=== PATIENT | male | born 1950 | race Caucasian/White ===

== ENCOUNTER → 2018-05-17 10:06 | Outpatient (CLI) | payer MEDICARE, SELFPAY ==
--- NOTE | 2018-05-17 | DI.MRI.S_ITS ---
PROCEDURE: MR CERVICAL SPINE WO CON INDICATIONS: CHRONIC PAIN OF BOTH SHOULERS TECHNIQUE: Noncontrast sagittal T1 spin echo and T2 fast spin echo, sagittal STIR, foraminal oblique sagittal T2 fast spin echo, and axial gradient echo or T2 fast spin echo through the cervical spine. COMPARISON: None. FINDINGS: Image quality: This examination is limited by involuntary motion artifact. Alignment and Curvature: There is normal bony alignment. Bone Marrow: Marrow demonstrates normal overall signal. Spinal Cord: Visualized spinal cord has normal size and signal. No cerebellar tonsillar herniation. Paraspinous Soft Tissues: No paravertebral masses. Prevertebral soft tissues are normal in thickness. C2-C3: No significant abnormality is seen. C3-C4: Mild loss of disc height is seen. Loss of disc signal is seen. Mild to moderate disc osteophyte complex is seen. Mild to moderate facet hypertrophy is seen. There is moderate to severe right-sided and moderate left-sided neural foraminal narrowing seen. Mild central canal narrowing is seen. C4-C5: The disc height is relatively well-preserved. Mild to moderate disc osteophyte complex is seen. Mild facet joint hypertrophy is seen. Moderate bilateral neural foraminal narrowing is seen, left greater than right. No significant central canal narrowing is seen. C5-C6: The disc height is relatively well-preserved. There is at least moderate disc osteophyte complex seen. There is a central disc osteophyte protrusion seen, as on series 4 image 34. Mild facet joint hypertrophy is seen. There is moderate to severe bilateral neural foraminal narrowing seen. Moderate central canal narrowing is seen, with associated mass effect upon the ventral spinal cord. C6-C7: The disc height is well-preserved. Moderate generalized disc osteophyte complex is seen. Mild facet joint hypertrophy is seen. Moderate to severe bilateral neural foraminal narrowing is seen. Moderate to severe central canal narrowing is seen, with associated mass effect upon the ventral spinal cord. C7-T1: No significant abnormality is seen. IMPRESSION: Cervical spine degenerative changes are seen, which are overall most prominent at the C6-C7 level, where there is moderate to severe central canal narrowing and moderate to severe bilateral neural foraminal narrowing. Dictated by: Edvin Mcclendon M.D. on 05/17/2018 at 11:50 Approved by: Edvin Mcclendon M.D. on 05/17/2018 at 11:54
== END ==
PROVIDERS: PCP Internal Medicine; Visit Provider Orthopaedic Surgery
DX: M50.323 Other cervical disc degeneration at C6-C7 level (principal); M48.02 Spinal stenosis, cervical region; M25.511 Pain in right shoulder; M25.512 Pain in left shoulder; G89.29 Other chronic pain
CPT/HCPCS: 72141

== ENCOUNTER → 2020-05-11 06:31 | Outpatient (CLI) | payer MEDICARE, SELFPAY ==
--- NOTE | 2020-05-11 | DI.MRI.S_ITS ---
PROCEDURE: MR KNEE RT WO CON INDICATIONS: pain in right knee TECHNIQUE: Noncontrast sagittal PD fast spin echo and T2 fast spin echo with fat saturation, sagittal 3-D FLASH with fat saturation; coronal T1 spin echo and PD fast spin echo with fat saturation, and axial PD fast spin echo with fat saturation through the knee. COMPARISON: None. FINDINGS: Image quality: Excellent. Menisci: There is complex tear involving posterior horn of medial meniscus extending to both superior and inferior articulating surface . There is no evidence of focal lateral meniscal tear. The meniscal root ligaments appear intact. Cruciate ligaments: The anterior and posterior cruciate ligaments appear intact. Medial structures: Low-grade MCL sprain is seen. The posterior oblique ligament, semimembranosus tendon insertions, oblique popliteal ligament, and meniscocapsular junction appear intact. Visualized portions of the pes anserinus tendons appear normal. No abnormal bursal fluid. Lateral structures: The lateral collateral ligament, long and short heads of the biceps femoris tendon appear intact. The popliteus tendon appears normal; the popliteofibular ligament appears intact. The posterosuperior and anteroinferior popliteomeniscal fascicles appear intact. The arcuate and fabellofibular ligaments appear intact, on either side of the lateral inferior geniculate artery. Iliotibial band appears normal. Anterior structures: The quadriceps and patellar tendons appear intact. Patellar alignment is normal. No femoral trochlear dysplasia or ventral trochlear prominence. No edema in the infrapatellar fat pad. Bones and cartilage: No bone marrow contusions or fractures. There is mild tricompartmental osteoarthritis and chondromalacia. Joint space: There is small amount of joint fluid. 2.5 x 2.5 x 4.4 cm popliteal cyst is seen.. Normal appearing synovial plicae are incidentally noted. IMPRESSION: 1. Complex tear involving posterior horn of medial meniscus extending to both superior and inferior articulating surfaces. No evidence of focal lateral meniscal tear. 2. Low-grade MCL sprain. Cruciate ligaments are intact. 3. Mild tricompartmental osteoarthritis and low-grade chondromalacia. Small amount of joint fluid and popliteal cyst as above. Dictated by: Kristian Souza M.D. on 05/11/2020 at 9:28 Approved by: Kristian Souza M.D. on 05/11/2020 at 9:31
== END ==
PROVIDERS: PCP Internal Medicine; Referring Provider Orthopaedic Surgery; Visit Provider Orthopaedic Surgery
DX: M25.561 Pain in right knee (principal); S83.231A Complex tear of medial meniscus, current injury, right knee, initial encounter; S83.411A Sprain of medial collateral ligament of right knee, initial encounter; M17.11 Unilateral primary osteoarthritis, right knee; M94.261 Chondromalacia, right knee; M71.21 Synovial cyst of popliteal space [Baker], right knee
CPT/HCPCS: 73721

== ENCOUNTER → 2020-05-14 11:04 | Outpatient (CLI) | payer MEDICARE, SELFPAY ==
[2020-05-14 12:00] LABS: Add Manual Diff / Slide Review NO; Basophils Absolute Auto 0 /uL (0-100); Basophils Percent Auto 0.6 % (0-2); Eosinophils Absolute Auto 100 /uL (0-450); Eosinophils Percent Auto 0.8 % (2-4); Hematocrit 39.8 % (41-53); Hemoglobin 13.4 g/dL (13.5-17.5); Lymphocytes Absolute Auto 1400 /uL (1100-4500); Lymphocytes Percent Auto 17.4 % (25-40); Mean Corpuscular HGB Conc 33.6 % (30-36); Mean Corpuscular Hemoglobin 29.2 PG (26-34); Mean Corpuscular Volume 86.7 fL (80-100); Monocytes Absolute Auto 300 /uL (0-900); Neutrophils Absolute Auto 6400 /uL (1500-7000); Neutrophils Percent Auto 77.2 % (50-75); Platelet Count 198 X10^3/uL (150-400); Red Cell Distribution Width 15.8 % (11.6-14.8); White Blood Cell Count 8.3 X10^3/uL (4.5-11.0)
[2020-05-14 12:27] LABS: BUN Creatinine Ratio 14.4 (6-22); Blood Urea Nitrogen 15 mg/dL (9-20); Calcium 9.9 mg/dL (8.4-10.2); Carbon Dioxide 28 mmol/L (22-32); Chloride 102 mmol/L (98-107); Estimated Glomerular Filt Rate > 60.0 mL/min (>60); Glucose 136 mg/dL (80-110); HEMOLYSIS < 15 (0-50); Potassium 4.8 mmol/L (3.4-5.1); Sodium 137 mmol/L (137-145)
== END ==
PROVIDERS: PCP Family Medicine; Referring Provider Orthopaedic Surgery; Visit Provider Orthopaedic Surgery
DX: Z01.818 Encounter for other preprocedural examination (principal); Z01.812 Encounter for preprocedural laboratory examination
CPT/HCPCS: 36415; 80048; 85025; 93005

== ENCOUNTER → 2020-09-30 06:58 | Outpatient (CLI) | payer MEDICARE, SELFPAY ==
--- NOTE | 2020-09-30 | DI.MRI.S_ITS ---
PROCEDURE: MR LUMBAR SPINE WO CON INDICATIONS: Low back pain TECHNIQUE: Noncontrast sagittal T1 spin echo and T2 fast echo, sagittal STIR, axial T1 and T2 fast spin echo through the lumbar spine. In cases with scoliosis, additional coronal T2 fast spin echo may be performed. COMPARISON: None. FINDINGS: Image quality: Excellent. Alignment and Curvature: There is normal bony alignment. Bone Marrow: No acute fracture. Transitional lumbosacral vertebra designated L1. Please see the montage image for further clarification of the spinal segmental level nomenclature used in this report prior to any intervention. Chronic appearing fracture of the L1 vertebral body with no marrow edema. Spinal Cord: Conus medullaris terminates at the L1-L2 level. Visualized cord demonstrates normal signal and size. Paraspinous Soft Tissues: No paravertebral masses. L1-L2: Normal appearance. L2-L3: Normal appearance. L3-L4: Dorsal epidural lipomatosis. Moderate canal narrowing. Partial effacement of both lateral recesses with bilaterally symmetric appearance. Moderate right foraminal stenosis with slight nerve root compression. Severe left foraminal stenosis with nerve root compression. L4-L5: Moderate canal stenosis. Near complete effacement of both lateral recesses with mildly asymmetric appearance, right slightly greater than left. Severe bilateral foraminal stenosis with nerve root compression. L5-S1: Mild canal narrowing. Lateral recesses appear grossly patent. Moderate right foraminal stenosis, with borderline nerve root compression. Moderate to severe left foraminal stenosis with slight nerve root compression. IMPRESSION: Multilevel spondylosis and facet arthropathy as above, moderate canal narrowing at L3-L4, L4-L5. Diffuse bilateral foraminal stenoses as detailed above by spinal level Chronic appearing L1 mild compression fracture. Dictated by: Floyd Noland M.D. on 09/30/2020 at 9:14 Approved by: Floyd Noland M.D. on 09/30/2020 at 9:21
== END ==
PROVIDERS: PCP Family Medicine; Referring Provider Family Medicine; Visit Provider Orthopaedic Surgery
DX: M54.5 Low back pain (principal); M47.816 Spondylosis without myelopathy or radiculopathy, lumbar region; M48.061 Spinal stenosis, lumbar region without neurogenic claudication; M48.56XA Collapsed vertebra, not elsewhere classified, lumbar region, initial encounter for fracture
CPT/HCPCS: 72148

== ENCOUNTER 2023-06-18 06:40 | Day surgery (SDC) | payer MEDICARE, SELFPAY ==
--- NOTE | 2023-06-18 | PATH_ITS ---
[facility] Accession Number: [id number] No. of containers..09 Tissue . 01 Material submitted: . PART A: gastrointestinal site - GASTRIC POLYPS PART B: esophagus - DISTAL ESOPHAGUS PART C: colon - DESCENDING COLON POLYPS PART D: colon - TRANSVERSE POLYPS PART E: cecum - CECUM POLYP PART F: ileo-cecal valve - ILEOCECAL VALVE BIOPSY PART G: colon - ASCENDING POLYPS PART H: sigmoid colon - SIGMOID POLYP PART I: rectum - RECTUM POLYPS . 01 Diagnosis: A. Gastric Polyps: Fundic gland polyps. No evidence of Helicobacter organisms on H/E stain. Negative for intestinal metaplasia. Negative for dysplasia and malignancy. . B. Distal Esophagus, Biopsy: Squamocolumnar junctional mucosa with no diagnostic abnormality. Negative for intestinal metaplasia. Negative for dysplasia and malignancy. . C. Descending Colon Polyps: Tubular adenomas. . D. Transverse Colon Polyps: Tubular adenoma. . E. Cecal Polyp: Tubular adenoma. . F. Ileocecal Valve, Biopsy: Mild active enteritis; please see comment. Negative for granulomas, dysplasia or malignancy. . G. Ascending Colon Polyps: Tubular adenomas. . H. Sigmoid Colon Polyp: Tubular adenoma. . I. Rectal Polyps: Hyperplastic polyps. [facility] 06/22/2023 1113 Local . 01 Comment: D. Only one biopsy fragment is received for histologic evaluation. . F. The findings in the ileocecal valve biopsy are most suggestive of an acute self-limited colitis (infectious vs. drug/toxin induced). . 01 Electronically signed: . Ruiz Matt MD, PhD, Pathologist NPI- [id number] . 01 Gross description: . Part A: GASTRIC POLYPS: Received in formalin is multiple fragment(s) of payan, soft tissue measuring 0.7 x 0.3 x 0.1 cm in aggregate submitted entirely in 1 cassette(s) Part B: DISTAL ESOPHAGUS: Received in formalin is 1 fragment(s) of payan, soft tissue measuring 0.3 x 0.3 x 0.1 cm submitted entirely in 1 cassette(s) Part C: DESCENDING COLON POLYPS: Received in formalin is 4 fragment(s) of payan, soft tissue measuring 0.5 x 0.5 x 0.4 cm to 0.4 x 0.3 x 0.2 cm submitted entirely in 1 cassette(s) 1. Part D: TRANSVERSE POLYPS: Received in formalin is 1 fragment(s) of payan, soft tissue measuring 1.3 x 0.5 x 0.3 cm submitted entirely in 1 cassette(s) Part E: CECUM POLYP: Received in formalin is multiple fragment(s) of payan, soft tissue measuring 1.5 x 0.5 x 0.3 cm in aggregate submitted entirely in 1 cassette(s) Part F: ILEOCECAL VALVE BIOPSY: Received in formalin is 1 fragment(s) of payan, soft tissue measuring 0.3 x 0.2 x 0.1 cm submitted entirely in 1 cassette(s) Part G: ASCENDING POLYPS: Received in formalin is multiple fragment(s) of payan, soft tissue measuring 1.0 x 0.6 x 0.3 cm in aggregate submitted entirely in 1 cassette(s) Part H: SIGMOID POLYP: Received in formalin is 1 fragment(s) of payan, soft tissue measuring 0.4 x 0.3 x 0.2 cm submitted entirely in 1 cassette(s) Part I: RECTUM POLYPS: Received in formalin is 3 fragment(s) of payan, soft tissue measuring 0.3 x 0.2 x 0.1 cm to 0.2 x 0.1 x 0.1 cm submitted entirely in 1 cassette(s) /AARadha 06/20/2023 0115 Local . 01 Pathologist provided ICD-10: K31.7, K21.9, D12.6, K62.1, K52.9 . 01 CPT . 570280, 643361, 305237, 327858, 959235, [id number], 576802, 136889, [id number] Specimen Comment: A courtesy copy of this report has been sent to [phone] Performed at: 01 [facility] [address] [place] [address], [place] [id number] MD Devon Donnelly MD Phone: [phone]
[2023-06-18] MEDS: LACTATED RINGERS 1,000 ML 100 ML IV (07:29)
[2023-06-18 07:43] VITALS: BP 153/78; PULSE 75; RESP 16; TEMP 36.3; O2SAT 100; BMI 27.1
--- NOTE | 2023-06-18 07:56 | PM.HP.1 ---
History of Present Illness History of Present Illness Date Patient Seen: 06/18/23 Time Patient Seen: 07:56 Chief complaint: EGD & Colonoscopy w/poss bx's Narrative: The patient was seen recently in clinic by Shailesh Cowan. As a result of some computer issues, I have not been able to see the note. The patient indicates that he has a chronic history of gastroesophageal reflux that is reasonably well controlled if he takes his omeprazole. He is interested in Barretts screening. He is a personal history of unknown histology colon polyps and it has been quite some time 12+ years since his last colonoscopy per recollection. He had an episode of red blood per rectum. Therefore both upper and lower endoscopy are pursued today. [facility] Social History household members: other Smoking Status: Never smoker alcohol intake: current Meds Home Medications and Allergies Home Medications Medication Instructions Recorded Confirmed Type metformin 500 mg tablet 500 mg PO QID 06/18/23 06/18/23 History omeprazole 20 mg capsule,delayed 20 mg PO DAILY 06/18/23 06/18/23 History release prednisone 10 mg tablet 10 mg PO DAILY 06/18/23 06/18/23 History rosuvastatin 10 mg tablet 10 mg PO DAILY 06/18/23 06/18/23 History Allergies Allergy/AdvReac Type Severity Reaction Status Date / Time levofloxacin [From Levaquin] AdvReac Verified 06/18/23 07:31 Review of Systems Review of Systems ROS: Yes All systems reviewed with the patient and are negative except as otherwise documented Exam Vital Signs (past 8 hours): - 06/18/23 07:43 Temperature 97.3 F L Pulse Rate 75 Respiratory Rate 16 Blood Pressure 153/78 H Pulse Oximetry 100 Oxygen Delivery Method Room Air Oxygen Delivery Method Room Air Const General: cooperative HENMT Head: normal to inspection Eyes General: appearance normal, both eyes and all related structures Neck Neck: normal visual inspection Chest Chest: normal inspection of the chest Resp Effort & Inspection: normal respiratory effort Cardio Rate: regular rate GI Inspection: normal to inspection Skin General: no rashes or lesions noted Neuro General: patient alert and patient awake Extrem General: normal to inspection and no pedal edema Psych Appearance: grossly normal Assessment & Plan Assessment & Plan narrative: 72-year-old male with chronic GERD and a personal history of colon polyps. There was an episode of red blood per rectum. Both EGD for Barretts screening and colonoscopy are pursued today.
--- NOTE | 2023-06-18 07:58 | PM.PREOP ---
Pre-operative Note Interval Note History & Physical reviewed/Exam performed by Physician: Yes Changes to H&P: No ASA Class (for procedural sedation): II
--- NOTE | 2023-06-18 08:55 | P.OP.EGD&C_ITS ---
Operative Date/Time/Diagnoses Date of procedure: 06/18/23 Time of procedure: 08:55 Pre-op diagnosis: Chronic GERD, personal history of colon polyps, red blood per rectum Post-op diagnosis: same Procedure & Clinicians Study performed: EGD with biopsies and colonoscopy with hot snare polypectomy, cold snare polypectomy, biopsies Same procedure as scheduled: Yes Indications: Chronic GERD, personal history of colon polyps, red blood per rectum Surgeon: Garry Parada Procedure Notes SCOAP/Timeout: Done Procedure in detail: After the risks and benefits were explained, written and verbal informed consent was obtained. The patient was brought into the procedure room and placed into the left lateral decubitus position. Please see anesthesia notes for sedation details. The scope was introduced into the mouth through the bite block and advanced under direct visualization to the 2nd portion of the duodenum. The scope was slowly withdrawn carefully examining the mucosa for any defects or lesions. Retroflexed views were accomplished in the stomach. The stomach was decompressed, the scope was then removed from the patient who tolerated the procedure well. The patient was then turned around. A digital rectal examination was accomplished. The scope was introduced into the rectum and advanced to the cecum as identified by the appendiceal orifice and ileocecal valve. The scope was slowly withdrawn to carefully examine the mucosa for any defects or lesions. Multiple direct views were made through the dentate line for exclusion of pathology. The colon was decompressed. The scope was removed from the patient who tolerated the procedure well. Adult colonoscope Bowel prep fair at best Because of the number of polyps required to be removed today and the length of time with which the colonoscopy took, a 22 modifier is requested. Scope withdrawal time: 27 minutes Sedation minutes: 50 Complications: none Impression: 1. Duodenum: No pathology appreciated throughout. 2. Stomach: Patient had numerous moderate-sized polyps all throughout the gastric body and fundus. Several of these were sampled with cold forceps for histopathology. Otherwise retroflexed views of the LES were unremarkable. 3. Esophagus: The squamocolumnar junction correlated for the most part with the top of the gastric folds. GEJ was at about 36 cm from the incisors. However in the 7:00 a.m. location there was a tongue of possible Barretts characterized by extension of the salmon-colored mucosa up into the tubular esophagus. This area was targeted for biopsy. If this was Barretts it would be considered C 0 M 0.5 by the [place] criteria. The remainder of the esophagus was unremarkable. There were no features of esophagitis nodularity stricturing. 4. Colon: Prep conditions were fair at best as described above. Numerous polyps were seen and removed today. There was 1 approximately 7-8 mm sessile polyp in the cecum removed by way of hot snare. There were 2 polyps in the ascending colon between 7 and 10 mm removed with hot snare. There were 2 7-10 mm polyps in the transverse colon removed with hot snare. There were 3 polyps in the descending colon removed with hot snare. These measured anywhere from 6- 8 mm. There was a 7 mm polyp in the sigmoid colon removed with hot snare. In the rectum there was a diminutive polyp removed with cold snare and a 5 mm polyp removed with hot snare. The ileocecal valve appeared probably lipomatous. I biopsied this to exclude any adenomatous features. The patient had grade 1-2 internal hemorrhoids. Endoscopic diagnosis 1. Possible short-segment Barretts 2. Numerous gastric polyps 3. Numerous colon polyps 4. Grade 1-2 internal hemorrhoids. Post-procedure Plan for aftercare: 1. Await histopathology 2. Continue anti-reflux therapy. 3. Repeat EGD 1 year for polyp surveillance 4. Repeat colonoscopy 6 months considering prep and the number of polyps removed today. Disposition: PACU
[2023-06-18 08:59] VITALS: BP 130/74; PULSE 67; RESP 14; TEMP 37.1; O2SAT 98
[2023-06-18 09:04] VITALS: BP 148/80; PULSE 73; RESP 14; O2SAT 98
[2023-06-18 09:09] VITALS: BP 123/81; PULSE 76; RESP 14; O2SAT 98
[2023-06-18 09:17] VITALS: BP 138/80; PULSE 63; RESP 12; TEMP 36.4; O2SAT 96
== END 2023-06-18 09:33 | disposition home or self-care (01) ==
PROVIDERS: PCP Internal Medicine; Referring Provider Internal Medicine Gastroenterology; Visit Provider Internal Medicine Gastroenterology
PROC: 0DJ08ZZ Inspection of Upper Intestinal Tract, Via Natural or Artificial Opening Endoscopic (ICD-10-PCS; CPT 43235; principal; 2023-06-18 08:00)
PROC: 0DJD8ZZ Inspection of Lower Intestinal Tract, Via Natural or Artificial Opening Endoscopic (ICD-10-PCS; CPT 45378; 2023-06-18 08:00)
DX: K62.5 Hemorrhage of anus and rectum (principal); Z86.010 Personal history of colon polyps; K21.9 Gastro-esophageal reflux disease without esophagitis; K64.1 Second degree hemorrhoids; K31.7 Polyp of stomach and duodenum; D12.4 Benign neoplasm of descending colon; D12.3 Benign neoplasm of transverse colon; D12.0 Benign neoplasm of cecum; D12.2 Benign neoplasm of ascending colon; D12.5 Benign neoplasm of sigmoid colon; K62.1 Rectal polyp; K52.9 Noninfective gastroenteritis and colitis, unspecified
CPT/HCPCS: 45385; 43239; 45380; J2704

== ENCOUNTER → 2023-09-26 11:19 | Outpatient (CLI) | payer MEDICARE, SELFPAY ==
--- NOTE | 2023-09-26 | DI.US.S_ITS ---
PROCEDURE: US PELVIC LIMITED INDICATIONS: ANURIA/OLIGURIA. BPH. EVALUATE POSTVOID RESIDUAL. TECHNIQUE: Real-time transabdominal scanning was performed of the urinary bladder, with image documentation. COMPARISON: None. FINDINGS: Bladder: Prevoid bladder volume of 161 cc. Postvoid residual 27 cc. The prevoid bladder appears within normal limits without stones or masses. Bilateral ureteral jets are seen. IMPRESSION: Urinary bladder appears within normal limits with postvoid residual of 27 cc. We strive to produce accurate, complete, and clear reports of imaging services. To assist us in improving patient care, this report was composed using standard report templates and voice recognition software. Therefore, it may contain abnormal punctuation, insertions and/or omissions. Occasional wrong-word or sound-alike substitutions may occur. Though we review the report and make efforts to correct it, we do recommend that the report be read carefully in proper context to recognize any text inaccuracies. Dictated by: Morris Benedict M.D. on 09/26/2023 at 13:52 Approved by: Morris Benedict M.D. on 09/26/2023 at 13:55
== END ==
PROVIDERS: PCP Internal Medicine; Referring Provider Internal Medicine; Visit Provider Internal Medicine
DX: N40.1 Benign prostatic hyperplasia with lower urinary tract symptoms (principal); R39.15 Urgency of urination
CPT/HCPCS: 76857

== ENCOUNTER → 2024-02-14 07:35 | Outpatient (CLI) | payer MEDICARE, SELFPAY ==
--- NOTE | 2024-02-15 09:38 | DI.NM.S_ITS ---
DATE OF SERVICE: 02/14/2024 NAME OF STUDY: Exercise stress test. INDICATIONS: 1. Exertional chest pain. 2. Cardiac stress. PROCEDURE: The patient underwent exercise stress test under the supervision of attending staff. The patient walked on Vijay protocol for 5 minutes and 30 seconds, achieved maximum heart rate of 142, which was 97% of target heart rate. SAVANNAH positive 11%. 7 METs of workload. Resting blood pressure 148/88 and peak blood pressure 170/90. Baseline rhythm was sinus. At peak exercise, the patient has nonspecific upsloping ST depression in inferolateral leads; however, around 3 minutes in recovery, started having horizontal ST depression in those leads. Maximum 1 to [address] depression in inferior leads and leads V2 through V6 with prolonged recovery up until [address] segments subsided with one 0.5 mg sublingual nitroglycerin. During exercise, the patient started having chest pain which was burning type in the middle of the chest and peaked around on a scale of 1 to 10, 7 in nature at peak exercise. Chest pain responded to sublingual nitroglycerin in recovery. Intermittent PVCs, however, in recovery; patient has 5-beat run of polymorphic nonsustained ventricular tachycardia as well. CONCLUSION: Highly abnormal exercise stress test with inducible ischemia with poor exercise tolerance with SAVANNAH positive 11%. Anginal type of chest discomfort during exercise. Frequent premature ventricular contractions including 5-beat run of polymorphic nonsustained ventricular tachycardia in recovery. Responded to one sublingual nitroglycerin with resolution of ST depression and chest pain. The patient was sent to [facility] for further evaluation and transferring to tertiary care center for left heart catheterization. Juan A Hyman - [employer]/ani/ doc#: [id number]/job#: [id number] dd: 02/14/2024 16:53:00 dt: 02/14/2024 20:25:00 DICTATING MD/COPIES TO: Solomon Becker MD; Duane Singer MD COPIES MNE: ADRI;
== END ==
PROVIDERS: PCP Internal Medicine; Referring Provider Internal Medicine; Visit Provider Internal Medicine
DX: R07.9 Chest pain, unspecified (principal); R94.39 Abnormal result of other cardiovascular function study
CPT/HCPCS: 93017

== ENCOUNTER 2024-02-14 08:46 | Emergency (ER) | payer MEDICARE, SELFPAY ==
[2024-02-14] VITALS (22 sets, daily range): BP systolic 102–128; BP diastolic 55–69; PULSE 81–91; RESP 12–23; TEMP 36.7; O2SAT 92–97; BMI 29.9
--- NOTE | 2024-02-14 08:57 | DI.RAD.S_ITS ---
PROCEDURE: XR CHEST 1V INDICATIONS: chest pain TECHNIQUE: One view of the chest was acquired. COMPARISON: None. FINDINGS: Surgical changes and devices: None. Lungs and pleura: Lungs are clear. No pleural effusions or pneumothorax. Mediastinum: Mediastinal contours appear normal. Heart size is mildly prominent. Bones and chest wall: No suspicious bony lesions. Overlying soft tissues appear unremarkable. IMPRESSION: No acute pulmonary process. Dictated by: Gina Marquez M.D. on 02/14/2024 at 10:59 Approved by: Gina Marquez M.D. on 02/14/2024 at 11:00
--- NOTE | 2024-02-14 09:01 | ED_ITS ---
HPI - Chest Pain General Chief Complaint: Chest Pain Stated Complaint: Chest Pain Time Seen by Provider: 02/14/24 08:56 Source: patient, family and other Mode of arrival: Wheelchair Limitations: no limitations History of Present Illness HPI narrative: Patient 73-year-old male history of uncontrolled diabetes presenting today with chest pain from treadmill stress test. He has been having chest discomfort off and on for the past 18 months. However he was seen and evaluated [facility] about 5 weeks ago told that he had stable angina. Today while on the treadmill he started having chest pain after about 3 minutes with a significant EKG changes. It appears that he is ST depression in lead 2 [address] elevation Chest pain and EKG changes stopped with rest. Cardiology was called and he was brought to the ED for further evaluation. He currently has no chest pain. He reports his father while having cardiac surgery brother of an unknown cause. Related Data Home Medications Medication Instructions Recorded Confirmed metformin 500 mg tablet 500 mg PO QID 06/18/23 06/18/23 omeprazole 20 mg capsule,delayed 20 mg PO DAILY 06/18/23 06/18/23 release prednisone 10 mg tablet 10 mg PO DAILY 06/18/23 06/18/23 rosuvastatin 10 mg tablet 10 mg PO DAILY 06/18/23 06/18/23 Allergies Allergy/AdvReac Type Severity Reaction Status Date / Time levofloxacin [From Levaquin] AdvReac Verified 06/18/23 07:31 Patient History Social History household members: other Smoking Status: Never smoker alcohol intake: current Smoking Status: Never smoker alcohol intake frequency: holidays/special occasions only Substance Use Type: marijuana Exam Initial Vital Signs Initial Vital Signs: Vital Signs Temperature 98.1 F 02/14/24 08:54 Pulse Rate 91 H 02/14/24 08:54 Respiratory Rate 18 02/14/24 08:54 Blood Pressure 128/69 02/14/24 08:54 Pulse Oximetry 97 02/14/24 08:54 Oxygen Delivery Method Room Air 02/14/24 08:54 GENERAL: Alert pleasant 73-year-old male HEENT: Head atraumatic,EOMI, pupils reactive, face symmetric, moist mucous membranes CARDIOVASCULAR: Regular rate and rhythm without murmurs, rubs or gallops. RESPIRATORY: Breath sounds equal bilaterally, no wheezes rales or rhonchi. ABDOMEN: Soft, nontender. Normoactive bowel sounds all 4 quadrants. No guarding or rebound. EXTREMITIES: Normal range of motion, no clubbing or edema. Neurovascularly intact NEUROLOGICAL: Alert and oriented x4.Normal gait and speech. SKIN: Warm, dry, no laceration, no petechiae, no rashes or lesions. Course Orders Ordered: ED Orders 02/14/24 08:57 XR chest 1V Stat Complete Blood Count AUTO DIFF Stat Comprehensive Metabolic Panel Stat Lipase Stat PTT Partial Thromboplastin Juan Stat Prothrombin Time INR Stat Troponin & CK Cardiac Panel Stat EKG-12 Lead Stat 02/14/24 09:15 PTT Partial Thromboplastin Juan Q6H 02/14/24 11:00 Trop I [Troponin I] Stat 02/14/24 11:07 EKG-12 Lead Stat 02/14/24 15:15 PTT Partial Thromboplastin Juan Q6H Discontinued Medications Aspirin (Aspirin 81 Mg Chew Tab) 324 mg PO NOW ONE Stop: 02/14/24 08:58 Last Admin: 02/14/24 09:15 Dose: 324 mg Documented By: GURJIT Heparin Sodium (Porcine) (Heparin 5,000 Unit/Ml Vial) 5,000 unit IV NOW ONE Stop: 02/14/24 09:15 Last Admin: 02/14/24 09:38 Dose: 5,000 unit Documented By: ALBA Sodium Chloride (Normal Saline 0.9%) 1,000 mls @ 150 mls/hr IV CONT MALDONADO Last Admin: 02/14/24 09:15 Dose: 150 mls/hr Documented By: GURJIT Heparin Sodium/Dextrose (Heparin Drip) 25,000 unit in 500 mls @ 23.427 mls/hr IV CONT MALDONADO; Protocol Last Admin: 02/14/24 09:22 Dose: Not Given Documented By: ALBA Heparin Sodium/Dextrose (Heparin Drip) 25,000 unit in 500 mls @ 19.523 mls/hr IV CONT MALDONADO; Protocol Last Titration: 02/14/24 11:59 Dose: 10 units/kg/hr, 19.523 mls/hr Documented By: LOUISA Co-signed By: GURJIT(2) Admin: 02/14/24 09:39 Dose: 10 units/kg/hr, 19.523 mls/hr Documented By: ALBA Co-signed By: GURJIT(2) Vital Signs Vital signs: Vital Signs - 8 hr 02/14/24 08:54 02/14/24 08:58 02/14/24 09:00 Temperature 98.1 F Pulse Rate 91 H 89 Respiratory Rate 18 21 Blood Pressure 128/69 120/66 Pulse Oximetry 97 96 Oxygen Delivery Method Room Air 02/14/24 09:00 02/14/24 09:10 02/14/24 09:10 Temperature Pulse Rate 89 87 Respiratory Rate 22 18 Blood Pressure 110/67 Pulse Oximetry 94 93 Oxygen Delivery Method 02/14/24 09:15 02/14/24 09:15 02/14/24 09:20 Temperature Pulse Rate 86 Respiratory Rate 17 Blood Pressure 114/65 119/66 Pulse Oximetry 93 Oxygen Delivery Method 02/14/24 09:20 02/14/24 09:25 02/14/24 09:25 Temperature Pulse Rate 88 88 Respiratory Rate 18 22 Blood Pressure 111/59 L Pulse Oximetry 94 93 Oxygen Delivery Method 02/14/24 09:30 02/14/24 09:31 02/14/24 09:31 Temperature Pulse Rate 84 83 Respiratory Rate 23 13 Blood Pressure 113/57 L Pulse Oximetry 93 94 Oxygen Delivery Method 02/14/24 09:35 02/14/24 09:35 02/14/24 09:40 Temperature Pulse Rate 83 83 Respiratory Rate 23 18 Blood Pressure 114/57 L Pulse Oximetry 93 94 Oxygen Delivery Method 02/14/24 09:40 02/14/24 09:45 02/14/24 09:45 Temperature Pulse Rate 83 Respiratory Rate 22 Blood Pressure 102/58 L 107/58 L Pulse Oximetry 92 Oxygen Delivery Method 02/14/24 09:50 02/14/24 09:50 02/14/24 09:55 Temperature Pulse Rate 84 Respiratory Rate 20 Blood Pressure 105/59 L 119/61 Pulse Oximetry 93 Oxygen Delivery Method 02/14/24 09:55 02/14/24 10:00 02/14/24 10:00 Temperature Pulse Rate 85 85 Respiratory Rate 16 21 Blood Pressure 125/64 Pulse Oximetry 93 94 Oxygen Delivery Method 02/14/24 10:05 02/14/24 10:05 02/14/24 10:10 Temperature Pulse Rate 84 Respiratory Rate 21 Blood Pressure 116/59 L 110/55 L Pulse Oximetry 93 Oxygen Delivery Method 02/14/24 10:10 02/14/24 10:15 02/14/24 10:15 Temperature Pulse Rate 81 83 Respiratory Rate 16 18 Blood Pressure 106/58 L Pulse Oximetry 93 93 Oxygen Delivery Method 02/14/24 10:20 02/14/24 10:20 02/14/24 10:25 Temperature Pulse Rate 82 Respiratory Rate 14 Blood Pressure 108/59 L 106/60 Pulse Oximetry 92 Oxygen Delivery Method 02/14/24 10:25 02/14/24 10:30 02/14/24 10:30 Temperature Pulse Rate 83 84 Respiratory Rate 18 12 Blood Pressure 111/61 Pulse Oximetry 94 94 Oxygen Delivery Method 02/14/24 10:45 02/14/24 10:45 Temperature Pulse Rate 82 Respiratory Rate 21 Blood Pressure 109/58 L Pulse Oximetry 93 Oxygen Delivery Method MDM - Chest Pain Lab Data 02/14/24 08:57 02/14/24 08:57 Labs: Lab Results 02/14/24 02/14/24 Range/Units 08:57 11:00 WBC 10.4 (4.5-11.0) X10^3/uL RBC 4.47 L (4.5-5.9) X10^6/uL Hgb 13.3 L (13.5-17.5) g/dL Hct 39.7 L (41-53) % MCV 88.9 (80-100) fL MCH 29.7 (26-34) PG MCHC 33.4 (30-36) % RDW 15.6 H (11.6-14.8) % Plt Count 203 (150-400) X10^3/uL Neut % (Auto) 80.2 H (50-75) % Lymph % (Auto) 14.8 L (25-40) % Walker % (Auto) 3.9 (3-14) % Eos % (Auto) 0.6 L (2-4) % Baso % (Auto) 0.5 (0-2) % Neut # (Auto) 8300 H (5315-2323) /uL Lymph # (Auto) 1500 (2945-5724) /uL Walker # (Auto) 400 (0-900) /uL Eos # (Auto) 100 (0-450) /uL Baso # (Auto) 100 (0-100) /uL PT 11.1 (9.4-12.5) SECONDS INR 1.0 (0.9-1.3) APTT 28 (25.1-36.5) SECONDS Sodium 140 (137-145) mmol/L Potassium 4.1 (3.4-5.1) mmol/L Chloride 107 (98-107) mmol/L Carbon Dioxide 21 L (22-32) mmol/L BUN 20 (9-20) mg/dL Creatinine 0.90 (0.66-1.25) mg/dL Estimated GFR > 60 (>60) mL/min BUN/Creatinine Ratio 22.2 H (6-22) Glucose 142 H (80-110) mg/dL Calcium 9.6 (8.4-10.2) mg/dL Total Bilirubin 0.6 (0.2-1.3) mg/dL AST 31 (17-59) IU/L ALT 26 (<50) IU/L Alkaline Phosphatase 61 (38-126) U/L Total Creatine Kinase 144 (55-170) U/L Troponin I 0.023 0.029 (0.01-0.034) ng/mL Total Protein 7.5 (6.3-8.2) g/dL Albumin 4.8 (3.5-5.0) g/dL Globulin 2.7 (1.7-4.1) g/dL Albumin/Globulin Ratio 1.8 (1.0-2.8) Lipase 82 (23-300) U/L Imaging Data Chest x-ray: Radiologist's Impression: PROCEDURE: XR CHEST 1V INDICATIONS: chest pain TECHNIQUE: One view of the chest was acquired. COMPARISON: None. FINDINGS: Surgical changes and devices: None. Lungs and pleura: Lungs are clear. No pleural effusions or pneumothorax. Mediastinum: Mediastinal contours appear normal. Heart size is mildly prominent. Bones and chest wall: No suspicious bony lesions. Overlying soft tissues appear unremarkable. IMPRESSION: No acute pulmonary process. Dictated by: Gina Marquez M.D. on 02/14/2024 at 10:59 ECG Data Attestation: I personally reviewed and interpreted this ECG as follows: Prior ECG tracings: available for review Interpretation: Normal sinus rhythm rate 90 ND interval 190 QRS 86 QTC 428 Q-wave noted in lead 3 AVF non pathologic no ST changes Repeat EKGs sinus rhythm rate 80 ND interval 190 QRS 94 QTC 419 Q-wave persistent in lead 3 and AVF unchanged from prior no acute ST changes MDM Narrative Medical decision making narrative: Patient 73-year-old male history of uncontrolled diabetes presenting today with failed treadmill stress test. He reports having significant chest pain with ST depression in inferior leads after just a few minutes. Cardiology initially was consulted by the treadmill team and sent the ED. Dr. Becker, on-call cardiology contacted by myself is aware of patient reports that patient should be on heparin drip and be transferred for a cardiac catheterization. Suspect for multivessel disease. Blood work reviewed troponin is negative at 0.023, creatinine is 0.90 no other electrolyte abnormalities anemia or leukocytosis Chest x-ray is reviewed without any acute cardiopulmonary process EKG is reviewed: [address] elevation or depressions at rest Patient is given aspirin and placed on heparin drip [facility] are both at capacity 10:50 Dr. Lynch, food runner at [facility] updated on patient's symptoms test results agrees with transfer and recommends admitting to hospitalist 10:55Dr. Abdul, hospitalist [facility] updated patient's symptoms test results accepts patient for transfer Discharge Plan Departure Patient Disposition: Xfer Acute [facility] Clinical Impression: Stable angina Prescriptions: No Action metformin 500 mg tablet 500 mg PO QID prednisone 10 mg tablet 10 mg PO DAILY omeprazole 20 mg capsule,delayed release(DR/EC) 20 mg PO DAILY rosuvastatin 10 mg tablet 10 mg PO DAILY Referrals: Duane Singer MD [Primary Care Provider] -
[2024-02-14 09:06] LABS: Add Manual Diff / Slide Review NO; Basophils Absolute Auto 100 /uL (0-100); Basophils Percent Auto 0.5 % (0-2); Eosinophils Absolute Auto 100 /uL (0-450); Eosinophils Percent Auto 0.6 % (2-4); Hematocrit 39.7 % (41-53); Hemoglobin 13.3 g/dL (13.5-17.5); Lymphocytes Absolute Auto 1500 /uL (1100-4500); Lymphocytes Percent Auto 14.8 % (25-40); Mean Corpuscular HGB Conc 33.4 % (30-36); Mean Corpuscular Hemoglobin 29.7 PG (26-34); Mean Corpuscular Volume 88.9 fL (80-100); Monocytes Absolute Auto 400 /uL (0-900); Monocytes Percent Auto 3.9 % (3-14); Neutrophils Absolute Auto 8300 /uL (1500-7000); Neutrophils Percent Auto 80.2 % (50-75); Platelet Count 203 X10^3/uL (150-400); Red Blood Cell Count 4.47 X10^6/uL (4.5-5.9); Red Cell Distribution Width 15.6 % (11.6-14.8); White Blood Cell Count 10.4 X10^3/uL (4.5-11.0)
[2024-02-14 09:14] LABS: Prothrombin Time 11.1 SECONDS (9.4-12.5)
[2024-02-14] MEDS: ASPIRIN 81 MG CHEW TAB 324 MG PO (09:15)
[2024-02-14] MEDS: SODIUM CHLORIDE 0.9% 1,000 ML 150 ML IV (09:15)
[2024-02-14 09:17] LABS: PTT Partial Thromboplastin Tim 28 SECONDS (25.1-36.5)
[2024-02-14 09:25] LABS: Alanine Aminotransferase 26 IU/L (<50); Albumin 4.8 g/dL (3.5-5.0); Albumin Globulin Ratio 1.8 (1.0-2.8); Alkaline Phosphatase 61 U/L (38-126); Aspartate Aminotransferase 31 IU/L (17-59); BUN Creatinine Ratio 22.2 (6-22); Bilirubin Total 0.6 mg/dL (0.2-1.3); Blood Urea Nitrogen 20 mg/dL (9-20); Calcium 9.6 mg/dL (8.4-10.2); Carbon Dioxide 21 mmol/L (22-32); Chloride 107 mmol/L (98-107); Creatine Kinase 144 U/L (55-170); Estimated Glomerular Filt Rate > 60 mL/min (>60); Globulin 2.7 g/dL (1.7-4.1); Glucose 142 mg/dL (80-110); HEMOLYSIS 19 (0-50); Lipase 82 U/L (23-300); Potassium 4.1 mmol/L (3.4-5.1); Sodium 140 mmol/L (137-145); Total Protein 7.5 g/dL (6.3-8.2)
[2024-02-14 09:37] LABS: Troponin I 0.023 ng/mL (0.01-0.034)
[2024-02-14] MEDS: HEPARIN 5,000 UNIT/ML VIAL 5000 UNIT IV (09:38)
[2024-02-14] MEDS: HEPARIN DRIP 25,000 UNIT/500 ML IV.SOLN 19.523 UNIT IV (09:39)
--- NOTE | 2024-02-14 11:00 | PC.NURSE ---
Pt sitting up in bed and a&ox4. Denies any cp and sob at this time.
--- NOTE | 2024-02-14 11:03 | PC.NURSE ---
Hospital Call list for transfer Reason for transfer: patient failed treadmill stress test, needing cardiology [id number]- [facility], spoke with Lisandra, patient placed on wait list 0922- [facility], spoke with Varun, patient placed on wait list 1002- [facility], spoke with Toma, patient placed on wait list 1006- [facility], spoke with Marta, patient on wait list Update: 1100- patient accepted at [facility] by Dr. Floyd Noland, currently waiting for bed assignment, stated it wont be for awhile
[2024-02-14 11:37] LABS: Troponin I 0.029 ng/mL (0.01-0.034)
== END 2024-02-14 12:09 | disposition short-term general hospital (02) ==
PROVIDERS: Emergency Provider Emergency Medicine; PCP Internal Medicine
DX: I20.89 Other forms of angina pectoris (principal)
CPT/HCPCS: 36415; 71045; 80053; 82550; 83690; 84484; 85025; 85610; 85730; 93005; 93010; 93017; 96365; 96366; 96375; 99284; J1644